=== PATIENT | female | born 1935 | race Caucasian/White ===

== ENCOUNTER 2021-03-18 21:20 | Inpatient (IN) ==
[2021-03-18 22:13] LABS: ABS Basophils 0.1 10^3/ul (0-0.2); ABS Lymphocytes 0.6 10^3/ul (1.0-4.8); ABS Monocytes 0.6 10^3/ul (0-0.8); ABS Neutrophils 9.6 10^3/ul (1.5-7.7); Eosinophil % 0.3 %; Hematocrit 43 % (35-47); Hemoglobin 14.4 g/dL (12.0-16.0); Lymphocyte % 5.9 %; Mean Corpuscular HGB Conc 33 g/dL (31-36); Mean Corpuscular Hemoglobin 31 pg (27-31); Mean Corpuscular Volume 92 fL (80-97); Mean Platelet Volume 7.8 fL (7.4-10.4); Platelet Count 202 10^3/uL (150-450); Red Cell Distribution Width 14 % (10-15); White Blood Count 10.9 10^3/uL (3.5-10.8)
[2021-03-18] MEDS ORDERED: Pantoprazole VIAL 40 MG VIAL IV ONE (22:27)
[2021-03-18 22:34] LABS: Activated Partial Thrombo Time 26.5 seconds (26.0-38.0); INR 1.2 (0.86-1.15)
[2021-03-18 22:35] LABS: Rapid COVID-19 Molecular Undetected (Undetected)
[2021-03-18 22:36] LABS: ALT 156 U/L (7-52); AST 347 U/L (13-39); Albumin 3.7 g/dL (3.2-5.2); Albumin/Globulin Ratio 1.4 (1-3); Alkaline Phosphatase 375 U/L (35-149); Anion Gap 10 mmol/L (2-11); Blood Urea Nitrogen 19 mg/dL (6-24); CO2 Carbon Dioxide 27 mmol/L (22-32); Calcium 9.1 mg/dL (8.6-10.3); Chloride 97 mmol/L (101-111); EGFR African American 60.1 (>60); EGFR Non-African American 49.7 (>60); Globulin 2.6 g/dL (2-4); Glucose 347 mg/dL (70-100); Potassium 4.4 mmol/L (3.5-5.0); Sodium 134 mmol/L (135-145); Total Protein 6.3 g/dL (6.4-8.9)
[2021-03-18 22:40] LABS: Troponin I 0.03 ng/mL (<0.03)
[2021-03-18] MEDS ORDERED: Lactated Ringers 500 ml BAG 500 ML IV ONE (23:25)
[2021-03-18] MEDS ORDERED: Morphine 4 MG/ML VIAL (1 ml) IV ONE (23:53)
[2021-03-19] MEDS ORDERED: Piperacillin/Tazobac ADVAN 3.375 GM in NS 0.9% 100 ml BAG 100 ML IVPB ONE (05:05)
[2021-03-19] MEDS ORDERED: Dextrose 50% Syringe 50 ml 25 GM/50 ML SYRINGE IV PUSH PRN (05:23)
[2021-03-19] MEDS ORDERED: Zosyn per Pharmacy NOTE FOLLOW UP SCH (06:00)
[2021-03-19 06:47] LABS: Lipase 923 U/L (11.0-82.0)
[2021-03-19 06:52] LABS: Troponin I 0.06 ng/mL (<0.03)
[2021-03-19] MEDS: Enoxaparin 40 MG/0.4 ML SYR SUBCUT SCH (09:04)
[2021-03-19] MEDS: Metoprolol Tartrate 5 mg VIAL 5 ml VIAL (1 mg/ml) IV SCH ×2 (11:46→20:52)
[2021-03-19] MEDS: ZOSYN 3.375 GM Q8H per EXTENDED INFUSION IV SCH ×2 (11:50→20:52)
[2021-03-19 12:38] LABS: Troponin I 0.05 ng/mL (<0.03)
[2021-03-19] MEDS: Aspirin EC 81 mg TAB.EC (enteric coated) PO SCH (14:29)
[2021-03-19] MEDS: Morphine 2 MG/ML SYRINGE IV PRN (14:46)
[2021-03-20] MEDS: Morphine 2 MG/ML SYRINGE IV PRN ×3 (02:55→20:27)
[2021-03-20] MEDS: Metoprolol Tartrate 5 mg VIAL 5 ml VIAL (1 mg/ml) IV SCH ×3 (03:19→22:01)
[2021-03-20] MEDS: ZOSYN 3.375 GM Q8H per EXTENDED INFUSION IV SCH ×3 (03:19→19:59)
[2021-03-20] MEDS: Enoxaparin 40 MG/0.4 ML SYR SUBCUT SCH (08:23)
[2021-03-20] MEDS: Aspirin EC 81 mg TAB.EC (enteric coated) PO SCH (08:23)
[2021-03-20 09:35] LABS: ABS Basophils 0.1 10^3/ul (0-0.2); ABS Eosinophils 0.1 10^3/ul (0-0.6); ABS Lymphocytes 0.9 10^3/ul (1.0-4.8); ABS Monocytes 0.7 10^3/ul (0-0.8); ABS Neutrophils 9.8 10^3/ul (1.5-7.7); Eosinophil % 0.8 %; Hematocrit 43 % (35-47); Hemoglobin 14.4 g/dL (12.0-16.0); Lymphocyte % 7.5 %; Mean Corpuscular HGB Conc 34 g/dL (31-36); Mean Corpuscular Hemoglobin 31 pg (27-31); Mean Corpuscular Volume 91 fL (80-97); Mean Platelet Volume 7.9 fL (7.4-10.4); Platelet Count 197 10^3/uL (150-450); Red Cell Distribution Width 14 % (10-15); White Blood Count 11.5 10^3/uL (3.5-10.8)
[2021-03-20 09:57] LABS: ALT 114 U/L (7-52); Albumin 3.2 g/dL (3.2-5.2); Albumin/Globulin Ratio 1.2 (1-3); Alkaline Phosphatase 286 U/L (35-149); Blood Urea Nitrogen 16 mg/dL (6-24); CO2 Carbon Dioxide 23 mmol/L (22-32); Calcium 8.6 mg/dL (8.6-10.3); Chloride 101 mmol/L (101-111); EGFR African American 64.4 (>60); EGFR Non-African American 53.2 (>60); Globulin 2.6 g/dL (2-4); Glucose 141 mg/dL (70-100); Sodium 134 mmol/L (135-145); Total Protein 5.8 g/dL (6.4-8.9)
[2021-03-20 10:20] LABS: Anion Gap 10 mmol/L (2-11)
[2021-03-20 14:09] LABS: Potassium Redraw 3.6 mmol/L (3.5-5.0)
[2021-03-21] MEDS: ZOSYN 3.375 GM Q8H per EXTENDED INFUSION IV SCH ×3 (03:14→19:46)
[2021-03-21] MEDS: Morphine 2 MG/ML SYRINGE IV PRN ×4 (03:48→22:08)
[2021-03-21 04:40] LABS: ABS Basophils 0.1 10^3/ul (0-0.2); ABS Eosinophils 0.3 10^3/ul (0-0.6); ABS Lymphocytes 0.6 10^3/ul (1.0-4.8); ABS Monocytes 0.6 10^3/ul (0-0.8); ABS Neutrophils 6.6 10^3/ul (1.5-7.7); Hematocrit 40 % (35-47); Lymphocyte % 7.8 %; Mean Corpuscular HGB Conc 33 g/dL (31-36); Mean Corpuscular Hemoglobin 30 pg (27-31); Mean Corpuscular Volume 91 fL (80-97); Mean Platelet Volume 7.9 fL (7.4-10.4); Platelet Count 188 10^3/uL (150-450); Red Blood Count 4.35 10^6 /uL (3.70-4.87); Red Cell Distribution Width 15 % (10-15); White Blood Count 8.2 10^3/uL (3.5-10.8)
[2021-03-21 05:00] LABS: Albumin 2.7 g/dL (3.2-5.2); Albumin/Globulin Ratio 1.1 (1-3); C Reactive Protein 89.41 mg/L (<8.01); Calcium 7.8 mg/dL (8.6-10.3); EGFR African American 72.8 (>60); EGFR Non-African American 60.1 (>60); Globulin 2.4 g/dL (2-4); Potassium 3.2 mmol/L (3.5-5.0); Total Bilirubin 4.6 mg/dL (0.2-1.0); Total Protein 5.1 g/dL (6.4-8.9)
[2021-03-21] MEDS: Metoprolol Tartrate 5 mg VIAL 5 ml VIAL (1 mg/ml) IV SCH ×3 (06:05→22:08)
[2021-03-21 07:48] LABS: Magnesium 1.6 mg/dL (1.9-2.7)
[2021-03-21] MEDS: Enoxaparin 40 MG/0.4 ML SYR SUBCUT SCH (08:32)
[2021-03-21] MEDS ORDERED: Magnesium Sulfate 2 gm BAG 2 GM/50 ML BAG IVPB ONE (09:37)
[2021-03-21] MEDS: Aspirin EC 81 mg TAB.EC (enteric coated) PO SCH (09:44)
[2021-03-21] MEDS: KCL 20 MEQ/100 ML IVPREMIX 20 MEQ/100 ML BAG IV SCH (10:40)
[2021-03-22] MEDS ORDERED: Potassium Chloride LIQUID 20 MEQ/15 ML LIQUID PO ONE (00:29)
[2021-03-22] MEDS: Morphine 2 MG/ML SYRINGE IV PRN (02:54)
[2021-03-22] MEDS ORDERED: PIPERACILLIN IV SCH (04:00)
[2021-03-22] MEDS ORDERED: TAZOBACTAM IV SCH (04:00)
[2021-03-22] MEDS: KCL 20 MEQ/100 ML IVPREMIX 20 MEQ/100 ML BAG IV SCH (04:56)
[2021-03-22] MEDS: Metoprolol Tartrate 5 mg VIAL 5 ml VIAL (1 mg/ml) IV SCH (05:32)
[2021-03-22 08:01] VITALS: BP 138/70
[2021-03-22] MEDS: Enoxaparin 40 MG/0.4 ML SYR SUBCUT SCH (08:09)
[2021-03-22] MEDS: Aspirin EC 81 mg TAB.EC (enteric coated) PO SCH (08:09)
[2021-03-22 08:51] LABS: ABS Basophils 0.1 10^3/ul (0-0.2); ABS Eosinophils 0.3 10^3/ul (0-0.6); ABS Lymphocytes 0.7 10^3/ul (1.0-4.8); ABS Monocytes 0.5 10^3/ul (0-0.8); ABS Neutrophils 5.1 10^3/ul (1.5-7.7); Eosinophil % 4.8 %; Hematocrit 42 % (35-47); Hemoglobin 14.2 g/dL (12.0-16.0); Lymphocyte % 9.8 %; Mean Corpuscular HGB Conc 34 g/dL (31-36); Mean Corpuscular Hemoglobin 31 pg (27-31); Mean Corpuscular Volume 91 fL (80-97); Mean Platelet Volume 8.3 fL (7.4-10.4); Nucleated Red Blood Cells % 0.1; Platelet Count 193 10^3/uL (150-450); Red Blood Count 4.59 10^6 /uL (3.70-4.87); Red Cell Distribution Width 15 % (10-15); White Blood Count 6.6 10^3/uL (3.5-10.8)
[2021-03-22 08:59] LABS: Blood Urea Nitrogen 14 mg/dL (6-24); CO2 Carbon Dioxide 21 mmol/L (22-32); Calcium 8.2 mg/dL (8.6-10.3); Chloride 103 mmol/L (101-111); EGFR African American 78.9 (>60); EGFR Non-African American 65.2 (>60); Glucose 157 mg/dL (70-100); Sodium 133 mmol/L (135-145)
[2021-03-22 14:58] LABS: Anion Gap 9 mmol/L (2-11)
== END 2021-03-22 11:03 | disposition hospice, home (50) | DRG 445 ==
LOC: SSU 21:20 → ED 21:20 → OBSVTOIN 03-19 14:05 → SUATTDRO 03-19 14:05
PROVIDERS: ADMIT Internal Medicine; ATTEND Internal Medicine